=== PATIENT | male | born 1995 | race Caucasian/White ===

== ENCOUNTER 2018-08-26 20:41 | Emergency (ER) | payer OTHER ==
[2018-08-26 20:50] VITALS: BP 117/84
--- NOTE | 2018-08-26 20:52 | ER Report ---
History and Physical Time Seen By MD: 20:50 HPI/ROS CHIEF COMPLAINT: Sore throat HISTORY OF PRESENT ILLNESS: This is a 23-year-old male who presents to the emergency room for sore throat. Patient was diagnosed with mono with the [facility] [employer] 3 days ago, has had increased swelling and discomfort in his throat. He is concerned about strep. He states he's also had high fevers at home of 104, took ibuprofen one time today, is still taking fluids in. Denies left upper quadrant pain. No nausea or vomiting. No diarrhea. REVIEW OF SYSTEMS: ENT: As above. Respiratory: No cough, no dyspnea. Cardiovascular: No chest pain, no palpitations. Gastrointestinal: No vomiting, no abdominal pain. Musculoskeletal: No back pain. Allergies: Coded Allergies: No Known Drug Allergies (Unverified , 08/26/18) Home Meds No Active Prescriptions or Reported Meds Past Medical/Surgical History The patient has no significant past medical or surgical history. Reviewed Nurses Notes: Yes Constitutional Vital Sign - Last 24 Hours 08/26/18 20:50 Temp 100.4 Pulse 100 Resp 16 B/P (MAP) 117/84 Pulse Ox 95 O2 Delivery Room Air Physical Exam General Appearance: The patient is alert, has no immediate need for airway protection and no current signs of toxicity. Eyes: Pupils equal and round no injection. Throat: Erythema to the soft palate and posterior oropharynx, exudates bilaterally, mild tonsillar hypertrophy. Respiratory: Chest is non tender, lungs are clear to auscultation. Cardiac: regular rate and rhythm. Gastrointestinal: Abdomen is soft and non tender, no masses, bowel sounds normal. Musculoskeletal: Neck: Anterior cervical chain lymphadenopathy. Extremities have full range of motion and are non tender. Skin: No rashes or lesions. DIFFERENTIAL DIAGNOSIS: After history and physical exam differential diagnosis was considered for mononucleosis, strep throat, viral pharyngitis. Medical Decision Making Data Points Laboratory Hematology Test 08/26/18 21:05 Group A Streptococcus (PCR) Negative (NEGATIVE) Chemistry Test 08/26/18 21:05 Group A Streptococcus (PCR) Negative (NEGATIVE) ED Course/Re-evaluation ED Course The patient was admitted to room. A history and physical were obtained. Differential diagnoses were considered. Although the patient does have a diagnosis of mono, we did collect a rapid strep. Patient was given Magic mouthwash and ibuprofen. Patient states his throat feels better. Negative strep. I reviewed the results with the patient. I did tell him this is a typical process with mononucleosis. We discussed his symptoms, taking ibuprofen and usin g acetaminophen judiciously during this infectious period. Patient was also given a prescription for Magic mouthwash. We discussed no contact sports or should he sustain any abdominal injuries within the next several weeks that he'll follow-up within a rest emergency department for evaluation. Patient had no other questions or concerns at this time and was discharged home. Decision to Disposition Date: Aug 26, 2018 Decision to Disposition Time: 21:50 Depart Departure Latest Vital Signs Vital Signs Date Time Temp Pulse Resp B/P (MAP) Pulse Ox O2 Delivery O2 Flow Rate FiO2 08/26/18 20:50 100.4 100 16 117/84 95 Room Air Impression: Primary Impression: Mononucleosis Condition: Improved Disposition: HOME OR SELF-CARE New Scripts No Active Prescriptions or Reported Meds Patient Instructions: Mononucleosis (ED) Additional Instructions: Use the Magic mouthwash as directed as needed for sore throat. You can take 600-800 mg of ibuprofen every 8 hours as needed for pain. You can still take ibuprofen however be a bit more cautious with this as it is metabolized by the liver. Drink plenty of fluids. Get plenty of rest. No sports activities for these 3-4 weeks. Follow-up with your primary care provider within the next 1-2 weeks for reevaluation. Return to the ER for any other concerns or worsening symptoms. Problem Qualifiers Primary Impression: Mononucleosis Infectious mononucleosis etiology: unspecified organism Infectious mononucleosis complication: without complication Qualified Codes: B27.90 - Infectious mononucleosis, unspecified without complication VANESA OLIVO-BC Aug 26, 2018 20:52
[2018-08-26] MEDS ORDERED: MAGIC MOUTHWASH 90 ML BTL PO ONE (21:10)
[2018-08-26] MEDS ORDERED: IBUPROFEN 800 MG TAB PO ONE (21:10)
[2018-08-26] MEDS ORDERED: MAG HYD/AL HYD/SIMETH 30ML UDC PO ONE (21:25)
[2018-08-26] MEDS ORDERED: LIDOCAINE 2% VISC SLN 15ML UDC PO ONE (21:25)
== END 2018-08-26 21:50 | disposition home or self-care (01) ==
LOC: ER 21:02
DX: B27.90 Infectious mononucleosis, unspecified without complication (principal)
CPT/HCPCS: 87653; 99283